=== PATIENT | male | born 1940 | race Caucasian/White ===

== ENCOUNTER 2019-01-27 14:50 | Inpatient (IN) | payer MEDICARE, OTHER ==
[~2019-01-27] VITALS: Ht 182.9 cm; Wt 99.2 kg
[2019-01-27] MEDS ORDERED: COLCRYS0.6 MG PO (15:32)
[2019-01-27] MEDS ORDERED: Felodipine ER5 MG PO (15:32)
[2019-01-27] MEDS ORDERED: Isosorbide Mono60 MG PO (15:32)
[2019-01-27] MEDS ORDERED: FURO40 PO (15:32)
[2019-01-27] MEDS ORDERED: ERGO400 PO (15:33)
[2019-01-27] MEDS ORDERED: CLOP75 PO (15:33)
[2019-01-27] MEDS ORDERED: VENL75ER PO (15:33)
[2019-01-27] MEDS ORDERED: PREVIDENT 500051 GM PO (15:33)
[2019-01-27] MEDS ORDERED: VITAMIN D32000 UNI1 PO (15:34)
[2019-01-27] MEDS ORDERED: Efudex40 GM TP (15:34)
[2019-01-27] MEDS ORDERED: TAMS.4ER PO (15:34)
[2019-01-27] MEDS ORDERED: INSULANPEN SC (15:34)
[2019-01-27] MEDS ORDERED: Bupropion HCl200 MG PO (15:34)
[2019-01-27] MEDS ORDERED: LISI20 PO (15:34)
[2019-01-27] MEDS ORDERED: ATOR80 PO (15:35)
[2019-01-27] MEDS ORDERED: OXYB5 PO (15:35)
[2019-01-27] MEDS ORDERED: ACETAMINOPHEN500 MG PO (15:35)
[2019-01-27] MEDS ORDERED: Inderal40 MG PO (15:35)
[2019-01-27] MEDS ORDERED: Aspirin EC81 MG PO (16:20)
[2019-01-27] MEDS ORDERED: Novolog100 UNIT/2 SC (16:31)
[2019-01-27] MEDS ORDERED: Norco 10-325 T1 EACH PO (16:32)
[2019-01-27] MEDS ORDERED: Nitroglycerin0.4 MG MM (16:34)
[2019-01-27] MEDS ORDERED: K-Dur 20 meq T20 MEQ PO (16:35)
[2019-01-27] MEDS ORDERED: Aqua Care71 GM TOP (16:36)
[2019-01-27] MEDS ORDERED: Flonase 0.05% N16 GM (16:39)
[2019-01-27] MEDS ORDERED: CO-Q 10 PO (16:44)
[2019-01-27] MEDS ORDERED: TRIDESILON60 GM TOP (16:44)
[2019-01-27] MEDS ORDERED: FLAXSEED PO (16:45)
[2019-01-27] MEDS ORDERED: CASCARA SAGRADA PO (16:47)
[2019-01-27] MEDS ORDERED: BIOTENE1000 ML PO (16:48)
[2019-01-27 17:26] LABS: International Normalized Ratio 1.11; Prothrombin Time Results 11.7 Sec (9.7-11.5)
[2019-01-27 18:17] LABS: Hematocrit 37.3 % (37.0-53.0); Hemoglobin 11.5 g/dL (13.5-17.5); Mean Corpuscular HGB 27.3 pg (26.0-34.0); Mean Corpuscular HGB Conc 30.8 g/dL (31.5-36.5); Mean Corpuscular Volume 89 fL (80-100); Mean Platelet Volume 12.3 fL (9.1-12.4); Platelet Count 73 K/mm3 (150-400); RDW Coefficient Variation 15.9 % (11.7-14.2); RDW Standard Deviation 51.5 fL (35.1-46.3); Red Blood Cell Count 4.21 M/mm3 (4.30-5.90); White Blood Cell Count 4.68 K/mm3 (4.00-11.30)
[2019-01-27 18:31] LABS: Anion Gap 6 mmol/L (6-16); Blood Urea Nitrogen 21 mg/dL (8-24); Bun/Creatinine Ratio 19.8 (12.0-20.0); CO2, Blood 28 mmol/L (21-32); Calcium, Blood 8.9 mg/dL (8.5-10.1); Chloride, Blood 105 mmol/L (98-108); Creatinine, Blood 1.06 mg/dL (0.60-1.20); Glomerular Filtration Rate >60 (60-); Glucose, Blood 158 mg/dL (70-99); Potassium, Blood 4.1 mmol/L (3.5-5.5); Sodium, Blood 139 mmol/L (136-145)
--- NOTE | 2019-01-27 18:58 | NUR ---
RECEIVED REPORT FROM ED RN AND PT TRANSFERRED TO UNIT, ASSUMED CARE. PT HAS FEVER UPON ARRIVAL TO UNIT, DR. MARTINEZ IN TO SEE HIM AND DISCUSS POSSIBLE INTERVENTION TOMORROW. ORDERED BLOOD CULTURES X2, ORDER PLACED. TENATIVELY WILL CHANGE TO NPO AT MIDNIGHT FOR ANGIO IN AM. PT IS ON ROOM AIR WITH O2 SAT >92%. WILL GIVE REPORT TO NOC RN.
--- NOTE | 2019-01-28 06:32 | NUR ---
SHIFT [facility]. ASSUMED CARE AT 1900. A LITTLE RESTLESS BUT STARTING TO SHIVER AND CHILL . FEVER NOTED . COOLING MEASURES ESTABLISHED. AND TEMP BEGINS TO REDUCE. FLUIDS TAKEN , DENIES ANY CHEST PAIN. A MILD ROSE ONLY AND AWARE JUST GIVEN TYLENOL SR, SB .BBB. SCATTERED WZ AND REPORTS THIS IS NORMAL FOR HIM/ LANTUS HELD WILL BE NPO,. LT LOWER TOOTH EXTRACTION AREA SEEMS W/ O ANY SWELLING OR UNUSUAL DRAINAGE. VERY WEAK SHAKEY WHEN QUICKLY GETS OUT OF BED TO VOID
--- NOTE | 2019-01-28 10:07 | NUR ---
RECEIVED REPORT AND ASSUMED CARE OF PATIENT. HE IS [place] AT BASELINE, AND SEEMS ANXIOUS BUT COOPERATIVE WITH CARE. DIFFICULTY OBTAINING BLOOD SAMPLE FOR LAB. THIS NURSE NOTIFIED CHARGE AND HE IS ON THE LIST FOR POWERGLIDE PLACEMENT. DR MARTINEZ SCHEDULED ANGIOGRAM FOR THIS EARLY AFTERNOON. HE STATED TO GIVE PT LIGHT BREAKFAST AND THEN NPO FOR PROCEDURE. WILL CONTINUE TO MONITOR.
--- NOTE | 2019-01-28 11:00 | NUR ---
PT TO RADIOLOGIC ELECTRONIC SPECIALIST AT 1055.
--- NOTE | 2019-01-28 13:44 | NUR ---
PT RETURNED TO ROOM AT 1235, ORDERS TO CONTINUE BEDREST FOR 4 HOURS. MONITORING FEMORAL SITE AND DOING RECOVERY VITALS, VSS. PT ON 4LPM O2 VIA NC, 92-95%. FAMILY AT BEDSIDE, WILL CONTINUE TO MONITOR CLOSELY. BED LOCKED AND LOW, CALL LIGHT WITHIN EASY REACH.
--- NOTE | 2019-01-28 14:36 | NUR ---
PATIENT CARE PATIENT'S GAVE PERMISSION FOR STUDENT TO PROVIDE CARE ON 01/29/19 FROM 0630 TO 1200.
--- NOTE | 2019-01-28 17:48 | NUR ---
PT HAD ANGIOGRAM TODAY IN MIXING MACHINE OPERATOR, RECOVERY LABS COMPLETED, FEMORAL ACCESS MONITORED SINCE PT RETURNED TO UNIT AT 1230. SITE HAS SMALL AMOUNT OF OZZING, BUT STABLE AND NO SIGNIFICANT CHANGES IN SITE. NO BRUISING OR HEMATOMA NOTED AT THIS TIME. PT O2 AT 2LPM VIA NC O2 SAT AT 92%. FAMILY AND FRIEND AT BEDSIDE THROUGHOUT THE DAY. WILL CONTINUE TO MONITOR AND GIVE REPORT TO JAYY MAR.
--- NOTE | 2019-01-29 02:50 | NUR ---
ASSUMED CARE AT 1900. ASLEEP AT THIS TIME. WHEN AROUSED TO REVIEW RT GROIN AT 1930. RT GROIN WNL STABLE / NO HEMATOMA. + PEDAL PULSES. WHEN FIRST AWAKE CONFUSED/FORGETFUL DOESNT KNOW IF DAY OR NIGHT, AND IF HE HAD A MEAL .THEN ORIENTED TO ALL OTHER QUESTIONS WHEN MORE AWAKE. SEEMS MISERABLE A FEVER IS DEVELOPING. COOL MEASURES . SOME CHILLS AND NOTED CONSTANT TREMOROUS ARMS AND HANDS. REPORTS THIS IS NORMAL FOR MANY YEARS . SOME GRUNTING AND MOANING AND FOR NO SPECIFIC REASON, OTHER THAN HE DOES HAVE EXERTIONAL SOB W/ ANY SLIGHT EXERTION. SOME AUDIBLE WZ NOTED IN EXERTION AND SCATTERED END EXP WZ NOTED POSTERIORLY AND INSPIR AND EXPIR WZ NOTED ANTERIORLY.. BY 0130 OOB IN ROOM AND A LITTLE MORE STEADY USING WALKER . SNACK GIVEN. STILL NOT KNOWING IF IT IS NOC OR DAY . REORIENTED AND MOST THINGS HE SAYS ARE ACCURATE AND APPROPRIATE. HR NOTED EARLY ON TO BE LOWEST OF 48. HELD PO BETA JANY DUE AT 2100. DENIES ANY PAIN OR DISCOMFORT. WEARS HOME CPAP. AND WHEN ASLEEP HR IS 47-60.NO O2 BLEED IN.
--- NOTE | 2019-01-29 06:25 | NUR ---
SHIFT SUMMARY . NO CHANGE IN ABOVE BUT SLEPT WELL AFTER SAT IN CHAIR FOR 2 HR AND AM IN ROOM W/ WALKER FEW TIMES. AT ABOUT 0100 WOKE UP IN SOAKED BED OF INCONTINENT OF URINE AND SAYS THIS HAPPENS AT HOME OCCASIONALLY AND NOT SURE WHY. DRY AT THIS TIME AND KEPT CPAP ON OVER LAST 3 HR AND SLEPT VERY WELL. AFEBRILE LAST VS. BUT EXTRA COVERS ON.RT GROIN SITE WNL. NO CHANGE. HR STILL 48 COMMON WHEN ASLEEP . SB
[2019-01-29 14:48] LABS: BASOPHILS ABSOLUTE AUTO 0.01 K/mm3 (0.00-0.23); BASOPHILS PERCENT AUTO 0 % (0-2); EOSINOPHILS PERCENT AUTO 0 % (0-6); Hematocrit 31.3 % (37.0-53.0); Hemoglobin 9.8 g/dL (13.5-17.5); IMMATURE GRAN ABSOLUTE AUTO 0.02 K/mm3 (0.00-0.10); IMMATURE GRAN PERCENT AUTO 1 % (0-1); LYMPHOCYTES ABSOLUTE AUTO 0.64 K/mm3 (0.84-5.20); LYMPHOCYTES PERCENT AUTO 15 % (21-46); MONOCYTES ABSOLUTE AUTO 0.36 K/mm3 (0.16-1.47); MONOCYTES PERCENT AUTO 8 % (4-13); Mean Corpuscular HGB Conc 31.3 g/dL (31.5-36.5); Mean Platelet Volume 11.1 fL (9.1-12.4); NEUTROPHILS ABSOLUTE AUTO 3.31 K/mm3 (1.96-9.15); NEUTROPHILS PERCENT AUTO 76 % (41-73); Platelet Count 69 K/mm3 (150-400); RDW Standard Deviation 50.4 fL (35.1-46.3); Red Blood Cell Count 3.63 M/mm3 (4.30-5.90); White Blood Cell Count 4.34 K/mm3 (4.00-11.30)
[2019-01-29 14:52] LABS: Mean Corpuscular Volume 86 fL (80-100)
[2019-01-29 14:58] LABS: Bun/Creatinine Ratio 23.2 (12.0-20.0); Calcium, Blood 8.3 mg/dL (8.5-10.1); Creatinine, Blood 1.55 mg/dL (0.60-1.20); Potassium, Blood 3.9 mmol/L (3.5-5.5)
--- NOTE | 2019-01-29 16:32 | NUR ---
PT SYNCOPAL EVENT: AKANKSHA SALMON AND AKANKSHA CAN REPORTED THAT PATIENT WAS OUT OF CHAIR AND HAD CORDS STRETCHED OUT, HE WAS WEAK AND APPEARED CONFUSED. CUSTODIAN BLOOD BANK'S HELPED PT BACK TO CHAIR AND TOOK BLOOD PRESSURE, 78/49. PT ASSISTED BACK TO BED, TOOK ANOTHER BP SYSTOLIC IN THE 115 RANGE. AFTER RESTING AND VISITING WITH DR. MARTINEZ WHO DROPPED IN TO SEE PATIENT BP RESOLVED TO 130'S SYSTOLICALLY. DR. MARTINEZ STATED PT NEEDS TO ONLY GET UP WITH ASSISTANCE AND NEEDS TO STAY ON BEDREST UNTIL DINNER TO RECOVER. WILL CONTINUE TO MONITOR AND TREAT PER ORDERS.
--- NOTE | 2019-01-29 19:50 | NUR ---
PT HAD A GOOD DAY, DR SERRANO TO BEDSIDE AT 1850 TO REPORT THAT HE HAS PUT ORDER IN FOR LEVOQUIN TO TREAT LEFT SIDED PNU. PT EXPRESSED SOME FRUSTRATION, BUT WAS HAPPY TO KNOW WHY HE IS FEELING SO POORLY. REPORTED SYNCOPAL EVENT TO DR. SERRANO, NO NEW ORDERS RECEIVED, POC TO GIVE ABX AND MONITOR PATIENT. HOSPITALIST TO SEE PATIENT TOMORROW. REPORTED TO NOC ISABELA LUNA.
[2019-01-30 05:07] LABS: Bun/Creatinine Ratio 23.3 (12.0-20.0); Calcium, Blood 7.7 mg/dL (8.5-10.1); Creatinine, Blood 2.1 mg/dL (0.60-1.20); Potassium, Blood 4.3 mmol/L (3.5-5.5)
--- NOTE | 2019-01-30 06:03 | NUR ---
SUMMARY: PT ADMITTED FOR NSTEMI. PT STABLE TONIGHT, NO COMPLIANTS OF CHEST PAIN, SOB. PT WORE CPAP TONIGHT. TYLENOL GIVEN X2, HIGHEST FEVER 101.3, OTHERWISE VSS, A/O. ANTIBIOTIC INFUSED. TELE SINUS SARAN 40-50S. NO ACUTE CONFUSION, BED ALARM ON FOR SAFETY. PT REPORTS INCREASED TREMOR, WHICH IS PT BASELINE. WILL REPORT TO DAY RN.
--- NOTE | 2019-01-30 14:33 | NUR ---
BEGINNING OF SHIFT Assumed care of pt at 0700. Report recieved from ISABELA Thompson. Pt on 2 LPM NC. Titrated to room air, with Dr Beltran at bedside. Pt tolerated titration to room air well. Plans for pt to discharge. Physical therapy worked with pt and recommended that pt stays one more night due to BLE weakness. Physical therapy worked with pt while pt's spouse in room. Spouse verbalized concern that pt may require more care than she can provide. Call placed to Dr Beltran. Provider agreed to keep pt for one more night. Pt and his spouse agreeable to this change in plan of care. Pt has not had any chest pain. Pt is significantly tremulous. Pt's spouse states pt has "benign tremor", but it is more severe right now compared to his baseline. Bed in lowest position. Call light in reach. Pt denies need at this time.
--- NOTE | 2019-01-30 16:57 | NUR ---
Brief visit with Chief this afternoon at the request of nursing. Pt has been resistant to going to an inpatient rehab facility per report. Chart reviewed. PT has worked with pt and . Pt is weak and would be at high risk for readmission if he is to go home with HH and his as primary caregiver. This afternoon PT worked with him again and recommends SNF. Pt is agreeable to go to SNF, but not to [facility]. He states "People go to [facility] to , and I won't go." LM with Iliana ROSALES, that pt prefers [facility] for rehab. Pt with non-stemi, pneumonia, essential tremors. He is a [facility]. Pt denies any current needs and has no questions at this time.
--- NOTE | 2019-01-30 18:44 | NUR ---
SHIFT SUMMARY No acute changes since last note. Pt is resting in chair at this time. Family states understading that pt will likely discharge to SNF. Pt on 2 LPM NC, placed while working with PT. Will continue to closely monitor until care handoff and bedside report with oncoming RN.
--- NOTE | 2019-01-31 04:31 | NUR ---
SHIFT SUMMARY THE PT ADMITTED FOR NSTEMI. FULL CODE. ADA DIET. TELE-SINUS SARAN AT A RATE OF 49 PER BASIN TENDER. CBG AT AC AND HS. 20G IV TO R AC. 2 PERSON ASSIST WITH TRANSFERS. 2L O2 VIA NC, NONE AT BASELINE. TAKES MEDICATIONS WHOLE. REDISH BROWN SPUTUM REPORTED BUT NONE OBSERVED SO FAR THIS SHIFT. EDUCATED PT REGARDING USE OF FLUTTER VALVE AND ASSISTED PT WITH FIRST USE. HOWEVER, PT IS VERY FORGETFUL AND IT IS UNCLEAR IF PT WILL REMEMBER TO USE SO FREQUENT REMINDERS MAY BE BENEFICIAL. PT HAS SIGNIFICANT TREMORS NOTED THROUGHOUT. SOME TREMOR AT BASELINE PER PT AND REPORT BUT CURRENTLY MORE DEBILITATING. PHYSICAL THERAPY IS RECOMMENDING SNF PLACEMENT DUE TO THE PT BEING TOO WEAK TO GO HOME SINCE THE CANNOT TAKE CARE OF THE PT IN CURRENT STATE. THE PT WAS GOPING TO [facility] YESTERDAY BUT PHYSICAL THERAPY ASKED TO HOLD DUE TO WEAKNESS AND SAFETY. THE PT PRESENTED TO THE ED WITH C/O CHEST PRESSURE AND NOT FEELING WELL FOR 2 WEEKS. THE PT WAS ADMITTED FOR NSTEMI AND IS ALSO NOTED TO HAVE LEFT LOWER LOBE PNEUMONIA. THE PT IS VERY ANXIOUS TO DISCHARGE AND IS NOT LIKEING THE IDEA OF GOING TO A SNF. THE PT WAS NOTED TO HAVE A 100.9 TEMP AT FIRST SET OF VITALS, REMOVED SEVERAL BLANKETS FROM PT AND MEDICATED PER EMAR. NO TEMP NOTED AT LAST SET OF VS. THE PT HAS APPEARED TO SLEEP COMFORTABLY OFF AND ON THROUGHOUT THE NIGHT BUT APPEARS TO BE AWAKENED BY TREMORS FREQURNTLY. THE PT APPEARS TO BE SLEEPING COMFORTABLY AT THIS TIME WITH NO APPARENT SIGNS OF ACUTE DISTRESS. FREQUENT VISUAL CHECKS IT IS NOT CLEAR IF PT IS ABLE TO MAKE NEEDS KNOWN. BED ALARM FOR SAFETY.
--- NOTE | 2019-01-31 07:23 | NUR ---
UPDATE THE PT WAS A 3 PERSON MAX ASSIST TO GET ON TO BSC THIS AM. THE PT WAS INCONTINENT OF BOWEL AND NEEDED TO FINISH ON BSC. PT WAS WAVING ARMS AND LEGS UNCONTROLLABLY WHILE ATTEMPTING TO GET PT ONTO THE COMMODE. PT WAS NOT FOLLOWING COMMANDS AND UNABLE TO REDIRECT INITIALLY. PT DOES NOT APPEAR TO BE WEAK BUT SIGNIFICANTLY UNCONTROLLED MOVEMENTS WITH TREMORS, AND VERY POOR BALANCE.
[2019-01-31 09:22] LABS: BASOPHILS PERCENT AUTO 0 % (0-2); EOSINOPHILS PERCENT AUTO 0 % (0-6); Hematocrit 32.4 % (37.0-53.0); Hemoglobin 10.2 g/dL (13.5-17.5); IMMATURE GRAN ABSOLUTE AUTO 0.03 K/mm3 (0.00-0.10); IMMATURE GRAN PERCENT AUTO 1 % (0-1); LYMPHOCYTES ABSOLUTE AUTO 0.75 K/mm3 (0.84-5.20); LYMPHOCYTES PERCENT AUTO 14 % (21-46); MONOCYTES ABSOLUTE AUTO 0.23 K/mm3 (0.16-1.47); MONOCYTES PERCENT AUTO 4 % (4-13); Mean Corpuscular HGB 27.3 pg (26.0-34.0); Mean Corpuscular HGB Conc 31.5 g/dL (31.5-36.5); Mean Corpuscular Volume 87 fL (80-100); Mean Platelet Volume 12.4 fL (9.1-12.4); NEUTROPHILS ABSOLUTE AUTO 4.43 K/mm3 (1.96-9.15); NEUTROPHILS PERCENT AUTO 81 % (41-73); Platelet Count 70 K/mm3 (150-400); RDW Standard Deviation 50.9 fL (35.1-46.3); Red Blood Cell Count 3.73 M/mm3 (4.30-5.90); White Blood Cell Count 5.44 K/mm3 (4.00-11.30)
[2019-01-31 09:37] LABS: Calcium, Blood 7.8 mg/dL (8.5-10.1); Creatinine, Blood 2.22 mg/dL (0.60-1.20); Potassium, Blood 4.2 mmol/L (3.5-5.5)
--- NOTE | 2019-01-31 11:17 | NUR ---
BEGINNING OF SHIFT Assumed care of pt at 0700. Report recieved from Ebony MAR. Pt on 5 LPM NC. Titrated down to 2 LPM NC. Pt tolerating O2 titration well. Shift assessment completed. Dr Beltran in to see pt this AM. Plans for discharge to SNF. Bed in lowest position. Call light in reach. Pt denies need at this time.
--- NOTE | 2019-01-31 12:20 | NUR ---
Clinical Visit: Pt is alert, oriented to self and situation. Reports that he is goingto a intermediate. Pt's , Rodney, is in the room; along with a close friend. She states that before this, pt was driving and taking care of himself. They had no need for caregivers, and this will be a total change of lifestyle for them. Rodney realizes that he may never be the same from now on. Pt gets momentarily agitated because he wants to return to his bed. He has been clising his eyes frequently during our conversation and does so in the middle of talking. Dusky appearance, denies pain and anxiety. Spoke to pt's nurse. She states that he transfers with one person assist, using gait belt and walker. Speak in low tones, pt follows directions well. Pt is treansfered using the above technique, pt did well and was placed in bed. Nurse assisted with scooting him up in bed. Pillow placed, knees elevated. Pt appears comfortable. is remaining at bedside until her daugher arrives, then she is going to lunch. She is asking when pt will discharge to facility. Answered that I will inquire about this to care management and get back to her. Card and information given. Pt does have a POLST, Rodney states. She offers to sign another POLST if needed. She confirms FULL code status and states that this is what is filled out on the POLST. Rodney states that pt does not look well, and for the last 3 days has been looking very poorly to her. Will follow up with care managment and get back to Rodney regarding her inquiry into when pt will be discharged from the hospital. Fax to [place] to request POLST form and/or advance directive. is trans
--- NOTE | 2019-01-31 18:34 | NUR ---
SHIFT SUMMARY Pt did not discharge to SNF today due to febrile temperatures during previous NOC shift. Pt started sinemet today for tremors. This RN does not see any improvement in the pt's tremor. Pt has had several visitors throughout the day. Pt to transfer to room 301. Faustino VALE to take pt to room 301 via bed. Report given to [facility], Pennie MAR.
--- NOTE | 2019-01-31 19:04 | NUR ---
TRANSFER Pt transferred to room 301 via bed, accompanied by Faustino VALE and Laura MAR. Chart, medications, and belongings transferred with patient.
--- NOTE | 2019-02-01 03:54 | NUR ---
PT WAS FOUND TRYING TO GET OF BED BY AID. PT HAD TOOK OFF CPAP AND HAD BLUEN LIPS. PT SPO2 WAS READING 40%. PT WAS FOUND BY THIS RN CONFUSED. O2 WAS PLACED ON PT AND SPO2 INCREASED. PT REMAINED CONFUSED. PT IS VERY UNSTEADY ON HIS FEET. PT WAS PLACED BACK INTO BED AND CPAP WITH O2 WAS PLACED. PT WENT TO SLEEP.
--- NOTE | 2019-02-01 05:17 | NUR ---
SHIFT SUMMARY PT ARRIVED TO FLOOR IN NO DISTRESS. PT FOUND TO BE UNSTEADY AND HAS A MARKED TREMOR NOTED. PT HAD NO COMPLAINTS. PT WENT TO BED AND HIS CPAP WAS PLACED. PT WAS FOUND TRYING TO GET OUT OF BED AND WAS CONFUSED. PT REDIRECTED TO BED. PT WAS ABLE TO SLEEP AGAIN WITH CPAP. PT IS CURRENTLY SLEEPING AND BREATHING EASY WITH CPAP. PT CONTINUES TO HAVE TREMORS NOTED IN HIS SLEEP. WILL REASSESS LEVEL OF CONFUSION WHEN PT WAKES.
[2019-02-01 09:33] LABS: BASOPHILS PERCENT AUTO 0 % (0-2); EOSINOPHILS PERCENT AUTO 0 % (0-6); Hemoglobin 8.7 g/dL (13.5-17.5); Mean Corpuscular HGB Conc 32.2 g/dL (31.5-36.5); Mean Platelet Volume 12.2 fL (9.1-12.4); Platelet Count 74 K/mm3 (150-400); RDW Coefficient Variation 16.5 % (11.7-14.2); RDW Standard Deviation 50.5 fL (35.1-46.3); Red Blood Cell Count 3.22 M/mm3 (4.30-5.90); White Blood Cell Count 4.28 K/mm3 (4.00-11.30)
[2019-02-01 09:36] LABS: IMMATURE GRAN ABSOLUTE AUTO 0.03 K/mm3 (0.00-0.10); IMMATURE GRAN PERCENT AUTO 1 % (0-1); LYMPHOCYTES ABSOLUTE AUTO 0.41 K/mm3 (0.84-5.20); LYMPHOCYTES PERCENT AUTO 10 % (21-46); MONOCYTES ABSOLUTE AUTO 0.14 K/mm3 (0.16-1.47); MONOCYTES PERCENT AUTO 3 % (4-13); Mean Corpuscular Volume 84 fL (80-100); NEUTROPHILS PERCENT AUTO 86 % (41-73)
[2019-02-01 09:53] LABS: Bun/Creatinine Ratio 33.1 (12.0-20.0); Calcium, Blood 7.1 mg/dL (8.5-10.1); Creatinine, Blood 2.51 mg/dL (0.60-1.20); Potassium, Blood 3.6 mmol/L (3.5-5.5)
--- NOTE | 2019-02-01 11:06 | NUR ---
THIS RN CAME TO FLOOR FOR SHIFT. DISCUSSED WITH NIGHT RN REASON FOR DIRECTOR OF GRADUATE ADMISSIONS. THIS RN CALLED DR. LUNSFORD, NEW ORDERS PLACED. DR. LUNSFORD REPORTED TO THE FLOOR TO ASSESS PATIENT WITH THIS RN. STATED THAT HE WANTED PATIENT TRANSFERED DUE TO THE INCREASE IN OXYGEN DEMANDS, DECREASING BLOOD PRESSURE AND INCREASED TEMP. ADMINSTERED OH TYLENOL, STARTED IV FLUIDS PER ORDER, STARTED 2 NEW IV'S FOR FLUIDS AND ANTIBIOTICS. PATIENT ON CPAP REQURING 8L BLED IN TO KEEP SATURATIONS BETWEEN 88-92%. REPORT GIVEN TO SABRINA DURAN IN PCU. PATIENT TRANSFERED.
[2019-02-01 15:11] LABS: Source, Urine Catheter
[2019-02-01 15:16] LABS: Bilirubin, Urine Neg (Neg); Blood, Urine 1+ (Neg); Glucose Qualitative, Urine Neg (Neg); Ketones, Urine Neg (Neg); Leukocyte Esterase, Urine Neg (Neg); Nitrite, Urine Neg (Neg); Protein, Urine 2+ (Neg); Specific Gravity, Urine 1.025 (1.003-1.022); Urobilinogen, Urine NORM (Normal)
[2019-02-01 15:22] LABS: Appearance, Urine Clear (Clear); Color, Urine Yellow (P-Yellow)
[2019-02-01 15:24] LABS: Bacteria Few /hpf; Red Blood Cells, Urine 0-2 /hpf (0-2); Squamous Epithelial Cells Not Seen /hpf (Few); White Blood Cells, Urine 0-2 /hpf (0-5)
[2019-02-01 16:01] LABS: BASOPHILS PERCENT AUTO 0 % (0-2); EOSINOPHILS PERCENT AUTO 0 % (0-6); Hematocrit 28.1 % (37.0-53.0); IMMATURE GRAN ABSOLUTE AUTO 0.04 K/mm3 (0.00-0.10); IMMATURE GRAN PERCENT AUTO 1 % (0-1); LYMPHOCYTES ABSOLUTE AUTO 0.43 K/mm3 (0.84-5.20); LYMPHOCYTES PERCENT AUTO 9 % (21-46); MONOCYTES ABSOLUTE AUTO 0.13 K/mm3 (0.16-1.47); MONOCYTES PERCENT AUTO 3 % (4-13); Mean Corpuscular HGB 27.5 pg (26.0-34.0); Mean Corpuscular Volume 86 fL (80-100); Mean Platelet Volume 11.6 fL (9.1-12.4); NEUTROPHILS ABSOLUTE AUTO 4.02 K/mm3 (1.96-9.15); NEUTROPHILS PERCENT AUTO 87 % (41-73); Platelet Count 75 K/mm3 (150-400); RDW Coefficient Variation 16.5 % (11.7-14.2); RDW Standard Deviation 51.6 fL (35.1-46.3); Red Blood Cell Count 3.27 M/mm3 (4.30-5.90); White Blood Cell Count 4.62 K/mm3 (4.00-11.30)
[2019-02-01 16:26] LABS: Percent Saturation 10.4 % (20.0-50.0)
[2019-02-01 16:27] LABS: Albumin, Blood 2.6 g/dL (3.4-5.0); Anion Gap 9 mmol/L (6-16); Blood Urea Nitrogen 85 mg/dL (8-24); Bun/Creatinine Ratio 36.8 (12.0-20.0); CO2, Blood 25 mmol/L (21-32); Calcium, Blood 7.1 mg/dL (8.5-10.1); Chloride, Blood 102 mmol/L (98-108); Creatinine, Blood 2.31 mg/dL (0.60-1.20); Glomerular Filtration Rate 29 (60-); Glucose, Blood 80 mg/dL (70-99); Phosphorus, Blood 4.4 mg/dL (2.5-4.9); Potassium, Blood 3.8 mmol/L (3.5-5.5); Sodium, Blood 136 mmol/L (136-145); Uric Acid, Blood 10.1 mg/dL (3.5-7.2)
[2019-02-01 17:11] LABS: CPK Creatine Kinase 2292 U/L (39-308)
--- NOTE | 2019-02-01 18:36 | NUR ---
SHIFT SUMMARY Assumed care of pt upon arrival to unit from medical floor at 0845. Pt arrived wearing 8 LPM oxymizer. O2 sats greater than 90%. Upon arrival to unit, pt was awake and persistently asking for water. This RN educated pt on reason for being NPO. This RN educated visitors that pt was not to have anything by mouth. Morning lantus given to pt as ordered, depsite NPO status, as pt has had minimal PO intake on Monday and , as witnessed by this RN, and pt's blood sugars were stable. Around noon, pt's O2 requirements increased to 15 LPM via CPAP. Blood sugars were low-normal. This RN notified Dr Beltran, while on unit. Disucssed Lantus and pt's blood sugar trend as well as increased O2 requirements. Provider in to see pt shortly afterwards. Pt tolerates breaks from CPAP well. 15 LPM via oxymizer when not on CPAP. Oral care perfomed Q4H and PRN with suction toothbrush. Repositioned Q2H. Pt remains severely tremulous. Pt has not been OOB. Transferred from medical floor to PCU via bed with slider sheet. Pt has worn CPAP for about 60% of time since arrival to unit. When pt on on CPAP, this RN works with pt to use flutter valve. Flutter valve effective in producing strong, harsh cough in pt, however pt is not producing any sputum. Pt continent of urine. Notifies staff in room when he needs the urinal. Bed in lowest position. Call light in reach. Pt denies need at this time. Will continue to closely monitor until care handoff and bedside report with oncoming RN.
--- NOTE | 2019-02-02 00:48 | NUR ---
ASSUMED CARE AT 2200, PATIENT RESTING, PLACED ON BIPAP AT 0015.
--- NOTE | 2019-02-02 00:49 | NUR ---
ASSUMED CARE AROUND 2200. PATIENT WITH OUT C\O. ASSISTED TO BEDSIDE COMMODE AND BACK TO BED. CALL LIGHT IN REACH WILL MONITOR.
[2019-02-02 05:57] LABS: Vancomycin, Random 7.3 ug/mL
[2019-02-02 06:40] LABS: Bun/Creatinine Ratio 37.4 (12.0-20.0); Calcium, Blood 7.3 mg/dL (8.5-10.1); Creatinine, Blood 2.06 mg/dL (0.60-1.20); Potassium, Blood 3.8 mmol/L (3.5-5.5)
--- NOTE | 2019-02-02 07:00 | NUR ---
recvd report from previous shift RN Rowdy, pt sleeping in bed, call light within reach, bed in lowest position, bed rails up x 2
--- NOTE | 2019-02-02 08:35 | NUR ---
SPEECH THERAPY TO EVALUATE PT 0900- DR LUNSFORD TO ROUND ON PT
--- NOTE | 2019-02-02 18:36 | NUR ---
shift summary: vss, no acute changes, 1800 sbp 102/50, held calcium channel candido. pt remained a/o x 3, no n/v, urine output >500 ml using urinal and up to commode, on very large BM. pt forgetful of using call light, called out. pt remained pleasant/cooperative. PT treated pt, up to chair for lunch. Pt remained in chair for 2 hrs. Visitors in room for 6 hrs total this shift. pt remained up and alert, speaking with friends/family, but when visitors left pt appeared to be very tired, got back in bed and slept from approx [id number], difficult to wake. lungs remained coarse with expiratory wheezes, 9L oxymizer with SPO2 >90%, at times high 90s. repositioned pt q2. pt with 1 moderate assist to commode/chair, fww and gait belt, states he feels "weak and tired". encouraged pt to rest as much as he can
--- NOTE | 2019-02-02 23:36 | NUR ---
ASSUMED CARE AT 1900. FAMILY AT BED SIDE. AWARE OF FAMILY AND SURROUNDINGS. MOST FACTS APPROPRIATE AND THEN NOTED TO BE FORGETFUL. CONSTANT FALLING OFF TO SLEEP AND NOTED AUDIBLE WZ AND AUSCULTATED WZ T/O BILAT. STRONG COUGH AND NON PRODUCTIVE. TOO SLEEPY AND NO HS SNACK OFFERED. AWARE MORPHINE HE HAD LAST NOC HELPED HIM TO BUT I REMINDED HIM HE IS CONSTANTLY FALLING OFF TO SLEEP/ AND NO SPECIFIC PAIN JUST DESIRES TO SLEEP/ MEPILEX ON COCCYX AND EVAL IS DOCUMENTED.REPOSITIONED AND ASSISTS A LITTLE. VERY TREMOROUS W/ ALL USAGE OF HANDS. PUDDING W/ PILLS AND HIGH FOWLERS.
--- NOTE | 2019-02-03 06:42 | NUR ---
SHIFT SUMMARY NO ACUTE CHANGES TO PT DURING THE NIGHT. HE HAS BEEN ALERT AND ORIENTED X 3 THROUGHOUT SHIFT. PAIN IN LEFT LOWER QUADRANT WHILE COUGHING. PT CONTINUE TO BE MONITORED UNTIL HANDOFF TO DAYSHIFT RN.
[2019-02-03 08:44] LABS: Bun/Creatinine Ratio 30.3 (12.0-20.0); Calcium, Blood 7.1 mg/dL (8.5-10.1); Creatinine, Blood 2.87 mg/dL (0.60-1.20); Potassium, Blood 3.9 mmol/L (3.5-5.5)
--- NOTE | 2019-02-03 21:59 | NUR ---
ASSUMED CARE AT 1900. SITTING UP IN CHAIR TALKING W/ FAMILY ABOUT WAR ISSUES. SEEMS ORIENTED CONVERSATION. A LITTLE FORGETFUL . FREQ PANTING BREATHS IF STRUGGLING TO BREATHE BUT SAT WNL AND GOOD WAVE FORM AND LEFT ON 3-4 L NC. FOR SAT OF 88-92. NO ACUTE RESP ISSUES . ENCOUR TO USE EFFECTIVE BREATHING. AND TRIES TO ACCOMODATE. AND FOLLOW INSTRUCTIONS . NO SWALLOWING ISSUES AND SNACK ENC BUT REFUSED NOW. AT 2114. NOTED PT FOUND BACK IN BED AND TRYING TO ADJUST SELF AND THEN BECAME VERY TACHEPNEC ALTHOUGH SATS OK AND SAME 4L . RECOVERED FAIRLY QUICKLY AND THEN STARTS MAONING AND GRUNTING ABOUT THE NEED TO HAVE MORPHINE FOR SLEEP . EXPLAINED ISSUES AND POSSIBLE MENTATION IMPAIRMENT AND LETHARGY LAST NIGHT AND ACCEPTS RESPONSE FOR A WHILE THEN THE MOANING AGAIN. PLACED ON CPAP AND WILL REPORT OFF TO MARIA GUADALUPE MAR
--- NOTE | 2019-02-03 22:30 | NUR ---
ASSUMED CARE PT CARE ASSUMED AT APPROXIMATELY 2230. PT ANSWERS ORIENTATION QUESTIONS APPROPRIATELY , BUT ANXIOUS AND TREMULOUS. PT IS PULLING AT CPAP MAST AND REMOVING NASAL CANNULA WHEN IT IS IN HIS NOSE. WHEN ASKED HOW HE HANDLES ANXIETY AT HOME, PT STATES THAT HE DOESN'T HAVE THIS MUCH STIMULATION AND ANXIETY AT HOME, BUT HE TAKES BENADRYL TO RELAX AND SLEEP. WILL CONTACT PROVIDER AND ASK FOR MEDICATION ORDERS. MASK PLACED BACK ON PATIENT AND ADJUSTED IN BED FOR COMFORT. PT APPEARS TO BE MORE RELAXED AFTER THIS, BUT IS STILL FIDGETY. O2 SATS BRIEFLY DECREASED TO LOW 80'S WHEN NASAL CANNULA REMOVED, BUT INCREASED TO >90% WHEN REPLACED. PT REQUIRES REMINDERS TO BREATH THROUGH HIS NOSE WHEN CPAP IS OFF. WILL CONTINUE TO MONITOR.
--- NOTE | 2019-02-04 05:00 | NUR ---
ABG ORDERS PT COTINUES TO ANSWER ORIENTATION QUESTIONS APPROPRIATELY, BUT IS REPORTING SEEING THINGS THAT AREN'T THERE AND SITUATIONS THAT HAVE NOT OCCURED. PT ALSO CONTINUES TO MOVE HANDS THROUGH THE AIR IF HE IS ATTEMPTING TO TOUCH SOMETHING THAT ISN'T THERE WELL CONTINUES TO PULL AT IV LINES AND CPAP MASK. RT CONTACTED AND ASKED TO ASSESS PATIENT AND POTENTIAL NEED FOR ABG- VERBAL ORDER RECEIVED FROM DR THOMAS TO RTYAMILA. LAB DRAWN, AWAITING RESULTS.
[2019-02-04 05:21] LABS: PCO2 Arterial 31.6 mmHg (35-45); PO2 Arterial 49.2 mmHg (80-100); pH Blood Arterial 7.44 (7.35-7.45)
--- NOTE | 2019-02-04 05:58 | NUR ---
SHIFT SUMMARY- PT HAS REMAINED AT CURRENT MENTATION THROUGHOUT THE NIGHT, ORIENTED TO SELF, PLACE, DATE/TIME, PRESIDENT, AND TOWN, BUT UNABLE TO STATE WHY HE IS HERE. O2 SATS HAVE REMAINED >90% ON 6L BLEED IN ON HOME CPAP MACHINE, CURRENTLY 95% READING ON CONTINUOUS BIOX, ALL OTHER VSS. PT HAS REMAINED ON BEDREST AND TURNED SELF IN BED FROM SIDE TO SIDE. PT HAS SLEPT MINIMALLY THROUGHOUT THE NIGHT, AND HAS BEEN AWAKE AND RESTLESS THROUGHOUT MUCH OF THE SHIFT. NO OTHER CHANGES NOTED FROM INITIAL ASSESSMENT. WILL CONTINUE TO MONITOR AND REPORT TO ONCOMING SHIFT RN. BED IN LOW POSITION, CALL LIGHT IN REACH.BED ALARM SET FOR SAFETY.
[2019-02-04 08:34] LABS: Vancomycin, Trough 19.9 ug/mL (5.0-10.0)
[2019-02-04 08:47] LABS: Bun/Creatinine Ratio 26.8 (12.0-20.0); Calcium, Blood 7.2 mg/dL (8.5-10.1); Creatinine, Blood 3.66 mg/dL (0.60-1.20); Phosphorus, Blood 4.1 mg/dL (2.5-4.9)
--- NOTE | 2019-02-04 13:06 | NUR ---
Met with 's in [facility] per her request this morning. She is tearful and states "If he knew what was going on, he wouldn't like it." She is considering changing him to comfort care status. She states, "I want to keep him comfortable because he continues to get worse." There is an echo which nursing reports was done this morning but no report on chart at this time. Will plan to meet with 's after the echo results are back. She is open to the idea of hospice, but is unsure if she would be able to manage him at home. is a and she stated she [facility] if she decides to transition him to comfort care. Emotional support given. PC will plan to follow up after echo report is complete.
--- NOTE | 2019-02-04 19:47 | NUR ---
PT RESTLESS T/O DAY. REC'D IN REPORT FROM NOC SHIFT THAT PT HAS NOT BEEN SLEEPING AT [facility]. CONCERNS IF INCREASED CONFUSION R/T NOT SLEEPING. PT WILL CLOSE EYES BUT PICKS AT TELE, BLANKETS/SHEETS, O2 TUBING. HAS BEEN IMPULSIVE, ATTEMPTING TO GET UP OUT OF CHAIR OR BED. NOT USING CALL LIGHT APPROPRIATELY. NO VOID TODAY, BLADDER SCANS BETWEEN 0 TO [address] THIS AFTERNOON. DR. LUNSFORD AWARE, AWAITING DR PALOMO TO ROUND. IV FLUIDS INFUSING. PT HAS ONLY TAKEN BITES OF APPLESAUCE, SIPS OF H2O/BROTH AT MEAL TIMES.PT STATES BEING "FULL" ECHO DONE, REPORT STATES EF AT 55%. NOTIFIED OF RESULTS. PT HAS HAD PERIODS OF AGITATION AND DIFFICULT TO REDIRECT, AND/OR PERIODS OF HALLUCINATIONS AND HAVING CONVERSATIONS WITH SELF. PALLIATIVE CARE ALSO IN TO SEE AND PT, WISHED TO HAVE CODE STATUS CHANGED TO DNR, PT NOW DNR. REPORT GIVEN TO ISABELA BALDWIN
--- NOTE | 2019-02-04 20:16 | NUR ---
ASSUMED CARE AT 193P0..VERY CONFUSESD , ONLY KNOWS NAME AND DATE. REORIENTED CONSTANTLY. PERIODS OF CALM COMFORTAABLE BREATHING TO COMPLETE PANIC RIPPING OFF CPAP WHICH WAS ACCEPTED AND COMFORTABLE FOR ABOUT 15 MIN. HELPS TURN W/ STAFF IF NOT IN ESCALATING PANIC STATE. EXCELLENT LOOSE STRONG COUGH. DENIES PAIN . NON STOP TREMORS IF TRYING TO USE ARMS OR HANDS. VERY EXHAUSTED LOOKING. 88% NOTED WHEN CALMING AND NOW BACK ON NC AT 6L. CPAP WAS WNL SAT FOR BLEED IN OF 6 L ALSO. SOME MOANING AND GRUNTING FOR COMFORT BUT NO ACUTE RESP DISTRESS.
--- NOTE | 2019-02-04 22:22 | NUR ---
COMPLETELY CONFUSED AND HALLUCINATING. COOPERATIVE IN NOT TRYING TO GET OUT OF BED. BED ALARM ON AT ALL TIMES. CPAP ATTEMPT AND ON AND OFF AT SHORT INTERVALS. STILL ALWAYS WNL SAT ON 6L. PULLING AT TUBING AND GENTLY AND REDIRECTED CONSTANTLY. NO EFFORT IN REMAINING ORIENTED
--- NOTE | 2019-02-05 00:02 | NUR ---
UNABLE TO VOID SEEM TO HAVE URGE BUT SO CONFUSED , NOT SURE IF HE UNDERTANDS WHAT STAFF IS TRYING TO ASSIST W/ WHEN HOLDING URINAL CONSTANTLY. BLADDER SCAN W/ RESULTS OF >395ML. CALLING MD FOR STRAIGHT CATH ORDERS.
[2019-02-05 01:06] LABS: Source, Urine Catheter
[2019-02-05 01:07] LABS: Bilirubin, Urine Neg (Neg); Blood, Urine 3+ (Neg); Glucose Qualitative, Urine Neg (Neg); Ketones, Urine Neg (Neg); Leukocyte Esterase, Urine Neg (Neg); Nitrite, Urine Neg (Neg); Protein, Urine 2+ (Neg); Specific Gravity, Urine 1.025 (1.003-1.022); Urobilinogen, Urine NORM (Normal)
[2019-02-05 01:15] LABS: Appearance, Urine Hazy (Clear); Color, Urine Yellow (P-Yellow); Red Blood Cells, Urine 0-2 /hpf (0-2); White Blood Cells, Urine 0-2 /hpf (0-5)
[2019-02-05 01:16] LABS: Amorphous Light (0-Heavy); Bacteria Mod /hpf; Squamous Epithelial Cells Not Seen /hpf (Few)
--- NOTE | 2019-02-05 02:25 | NUR ---
MOSTLY COMBATIVE AND ESCALATES W/ ANGER FOR STRAIGHT CATH AND IV START/TALKED THROUGH AND CALMED.STRAIGHT CATH INSERT WAS 500 ML AND FAIRLY GOOD AMT URINE SQUIRTING THROUGH MEATUS CATH INSERTED.,UA SENT.WEARING CPAP MOSTLY AT 8L BLEED IN , NOW.
--- NOTE | 2019-02-05 03:34 | NUR ---
LAST 1.5 HRS NON STOP FIGET/TREMORS/WRESTLING W/ BEDDING/STIFFENING UP/ BUT KEEPS CPAP ON AND TALKING THROUGH CPAP ..HALLUCINATIONS AND TALKING TO SELF. PULLING TELE LEADS OFF CONSTANTLY.
[2019-02-05 04:53] LABS: Hematocrit 26.7 % (37.0-53.0); Hemoglobin 8.3 g/dL (13.5-17.5); Mean Corpuscular HGB 26.8 pg (26.0-34.0); Mean Corpuscular HGB Conc 31.1 g/dL (31.5-36.5); Mean Corpuscular Volume 86 fL (80-100); Mean Platelet Volume 11.5 fL (9.1-12.4); NRBC ABSOLUTE 0.03 K/mm3 (0.00-0.02); NRBC Auto 0.6 /100 WBC (0.0-0.2); Platelet Count 123 K/mm3 (150-400); RDW Coefficient Variation 16.8 % (11.7-14.2); RDW Standard Deviation 53.5 fL (35.1-46.3)
[2019-02-05 05:19] LABS: Albumin, Blood 2.3 g/dL (3.4-5.0); Anion Gap 10 mmol/L (6-16); Blood Urea Nitrogen 102 mg/dL (8-24); Bun/Creatinine Ratio 28.7 (12.0-20.0); CO2, Blood 23 mmol/L (21-32); Calcium, Blood 7.5 mg/dL (8.5-10.1); Chloride, Blood 107 mmol/L (98-108); Creatinine, Blood 3.55 mg/dL (0.60-1.20); Glomerular Filtration Rate 18 (60-); Glucose, Blood 78 mg/dL (70-99); Phosphorus, Blood 4.5 mg/dL (2.5-4.9); Potassium, Blood 3.9 mmol/L (3.5-5.5); Sodium, Blood 140 mmol/L (136-145); Vancomycin, Random 17.2 ug/mL
--- NOTE | 2019-02-05 06:00 | NUR ---
SHIFT SUMMARY...PANIC EPISODES ON AND OFF. NO ACUTE CAUSE NOTED. 8L NEEDED THRU NOC FOR CPAP AND NC. . NOT MUCH CHANGE FROM ABOVE
[2019-02-05 06:21] LABS: BAND PERCENT MAN 1 % (0-8); BASOPHILS PERCENT MAN 0 % (0-2); EOSINOPHILS PERCENT MAN 0 % (0-6); LYMPHOCYTES PERCENT MAN 2 % (21-46); METAMYELOCYTE ABSOLUTE MAN 0.05 K/mm3 (0.00-0.00); METAMYELOCYTE PERCENT MAN 1 % (0-0); MONOCYTES ABSOLUTE MAN 0.15 K/mm3 (0.16-1.47); MONOCYTES PERCENT MAN 3 % (4-13); MYELOCYTE ABSOLUTE MAN 0.05 K/mm3 (0.00-0.00); MYELOCYTE PERCENT MAN 1 % (0-0); NEUTROPHILS ABSOLUTE MAN 4.74 K/mm3 (1.96-9.15); SEG NEUTROPHILS PERCENT MAN 92 % (41-73); TOTAL CELLS COUNTED 100
--- NOTE | 2019-02-05 12:00 | NUR ---
MALLY RN TO ASSUME CARE, REPORT GIVEN. PT HAS BEEN RESTLESS T/O MORNING. AND DAUGHTER IN RM. PT IS UP IN CHAIR. WAS ABLE TO VOID THIS AM. DID DISCUSS BLADDER SCAN RESULTS WITH DR LUNSFORD THIS AM, REC'D ORDER TO CONT BLADDER SCANS PRN AND TO STRAIGHT CATH OR PLACE KRUEGER IF NEEDED. PALLIATIVE CARE IN EARLIER TO VISIT WITH , WILL CONT CURRENT PLAN OF CARE.
--- NOTE | 2019-02-05 12:36 | NUR ---
REPORT RECEIVED FROM STEVEN MAR, NO ACUTE ISSUES NOTED, PATIENT IN BED RESTING QUIETLY IN BED. WILL CONTINUE TO MONITOR FOR CHANGES.
--- NOTE | 2019-02-05 12:50 | NUR ---
Met with pt's this morning. remains confused and aggitated at times. Staff report that he did not sleep well last night. Spoke with Dr. Beltran who asked if pt may have restarted drinking ETOH recently, history of ETOH and smoking 30-40 years ago per H&P. His anxiety, aggitation, hallucinations, tremors have increased over the past few days. Spoke with 's this morning. She states that he has not had any ETOH in the past 5-10 years, "not even wine." In dicussing his current symptoms, she stated that about 10 years ago when was traveling the country with a friend he had a tooth infection and ended up being hospitalized in [place] with very similar symptoms to what he is having now. She stated that he was treated for the infection and "One day just got better and was back to his old self." She reports about two weeks ago was to have a root canal, however this was complicated by a dry socket and an infection. She is wondering if maybe the tooth infection again triggered this episode. has been exhibiting signs in past days that are similar to delerium type symptoms. Infection, pain, constipation, poor kidney function, environmental changes could all possibly be adding to his symptoms. His states that he is very much driven by his routines and the fact that he is in the hospital and not able to carry out his normal routines is likely adding to his aggitation. 's stated that today he does seem to be a little bit more like himself. He is a little more alert and words are more easily understood. He is starting to make more urine and his kidney function is about the same as it was yesterday per lab testing. She states she is hopeful that he will return to his baseline and be able to come home with her. She reports that she would be interested in [facility] if he declines or needs SNF for rehab. Dr. Beltran and Iliana Garza CM, updated on conversation with pt's . PC will continue to follow for symptom management.
--- NOTE | 2019-02-05 14:00 | NUR ---
REC'D REORT FROM DENNY MAR. PT IN BED. RESTING ONE MINUTE, THEN FLAILING THE NEXT. BECOMES VERY RESTLESS AND PANICS AT TIMES. NEEDING FREQ REASSURANCE, IS REDIRECTABLE. WILL PULL OFF TELE LEADS AND O2/CPAP. CONT BIOX ON R FOOT. CONT TO MONITOR
--- NOTE | 2019-02-05 18:45 | NUR ---
NO ACUTE CHANGES NOTED. PATIENT HAS MOMENTS OF CLARITY AND THEN GETS CONFUSED AGAIN, HE GET VERY ANXIOUS WHEN HE IS UP AND MOVE DOWN FOR THE CHAIR TO THE COMMODE OR BED. HIS O2 SATS HAVE AMINTIANED IN THE LOW 90'S EVEN WITH ACTIVITY. PATIENT IS VOIDING INDEPENDENTLY NOT REQUIRING STRAIGHT CATH THIS SHIFT. NO CURRENT COMPLAINTS OF PAIN OR DISCOMFORT. PATIENT REQUIRE ORAL CARE OFTEN DUE TO PREVIOUS ORAL SURGERY. WILL CONTINUE TO MONITOR FOR CHANGES.
--- NOTE | 2019-02-05 21:13 | NUR ---
UPDATE PT ALERT, CONFUSED, VERY ANXIOUS W/ RR 30'S-40'S, PULLING AT AND REMOVING CPAP MASK W/ DESAT TO 74%. TIME SPENT ENCOURAGING DEEP BREATHING AND USE OF MASK. PT GRIMACING AND ARCHING BACK. PT TX'D PER EMAR. RR NOW SLOWED TO 20'S W/ PT CALM AND TOLERATING CPAP. PT IN BED W/ BED ALARM ON. WILL CONTINUE TO MONITOR.
[2019-02-06 04:51] LABS: Hemoglobin 8.6 g/dL (13.5-17.5); Mean Corpuscular HGB 26.7 pg (26.0-34.0); Mean Corpuscular HGB Conc 31.9 g/dL (31.5-36.5); Mean Corpuscular Volume 84 fL (80-100); Mean Platelet Volume 10.5 fL (9.1-12.4); Platelet Count 132 K/mm3 (150-400); RDW Standard Deviation 52.2 fL (35.1-46.3); Red Blood Cell Count 3.22 M/mm3 (4.30-5.90); White Blood Cell Count 5.02 K/mm3 (4.00-11.30)
[2019-02-06 05:11] LABS: Albumin, Blood 2.2 g/dL (3.4-5.0); Albumin/Globulin Ratio 0.6 (0.8-1.8); Bilirubin, Total 1.3 mg/dL (0.1-1.0); Bun/Creatinine Ratio 33.7 (12.0-20.0); Calcium, Blood 7.7 mg/dL (8.5-10.1); Creatinine, Blood 2.64 mg/dL (0.60-1.20); Globulin, Blood 3.4 g/dL (2.2-4.0); Potassium, Blood 4.2 mmol/L (3.5-5.5); Total Protein, Blood 5.6 g/dL (6.4-8.2)
[2019-02-06 05:34] LABS: BASOPHILS PERCENT MAN 0 % (0-2); EOSINOPHILS ABSOLUTE MAN 0.05 K/mm3 (0.00-0.68); EOSINOPHILS PERCENT MAN 1 % (0-6); LYMPHOCYTES PERCENT MAN 2 % (21-46); METAMYELOCYTE PERCENT MAN 2 % (0-0); MONOCYTES PERCENT MAN 4 % (4-13); NEUTROPHILS ABSOLUTE MAN 4.56 K/mm3 (1.96-9.15); SEG NEUTROPHILS PERCENT MAN 91 % (41-73); TOTAL CELLS COUNTED 100
--- NOTE | 2019-02-06 06:34 | NUR ---
SHIFT SUMMARY PT ALERT, ORIENTED TO SELF AND FAMILY W/ EPISODES OF ANXIETY AND CONFUSION. PT REQUIRING COACHING TO DEEP BREATHE & REASSURANCE BY STAFF. LUNG SOUNDS COARSE T/O. OCCASSIONAL NONPRODUCTIVE COUGH. TACHYPNEA W/ EPISODES OF ANXIETY. EPISODES OF PT PULLING OFF OXYGEN AND DESATING BEGINNING OF SHIFT, SEE PREVIOUS NOTE. PT PROVIDED REASSURANCE AND REAPPLICATION OF MASK UNTIL THEN MEDICATED PER EMAR W/ NO FURTHER EVENTS T/O SHIFT. PT TOLERATING CPAP W/ BLEED IN OF 8L OR NC @ 7-8L. MONITOR SHOWS NSR W/ BBB. PT UNABLE TO VOID WHILE LAYING IN BED, BUT ABLE TO VOID STANDING AT BEDSIDE USING URINAL OR SITTING ON BEDSIDE COMMODE. PT TOLERATING NECTAR THICK LIQUIDS PROVIDED BY STAFF, PT UNABLE TO FEED SELF. PT CONTINUES TO BE TREMULOUS. ORAL CARE PROVIDED T/O SHIFT W/ THOROUGH CLEANING OF SPACE OF EXTRACTED TOOTH. PT IN BED W/ CALL LIGHT IN REACH. WILL CONTINUE TO MONITOR AND PROVIDE CARE UNTIL REPORT OFF TO DAY SHIFT RN.
--- NOTE | 2019-02-06 12:58 | NUR ---
Assumed care of pt at approx 0700. Pt in slight respiratory distress, tachypneic, and with obvious work to breathe. Morphine 2 mg given per eMAR effective to relieve anxiety and improve respiratory function. CPAP taken off pt per request and pt on 7L NC tolerating O2 > 90%. at bedside with pt. All other VSS. Pt did not eat breakfast or lunch. Dr. Beltran in this AM with pt. states to family pt improvement from yesterday. Dr. Beltran states to expected D/C next week. Pt still presenting with moderate confusion, delusion, and c/o visual hallucinations. HR trending downward congruent with administration of morphine. Pt HR down to 48 per school lunch monitor. Pt asymptomatic, BP stable. See shift assessment for detailed assessment, will continue to monitor and update as appropriate
--- NOTE | 2019-02-06 18:32 | NUR ---
Spiritual Care initial visit: Lengthy visit with pt's , Willow. She shared me with stories of Girish' dependabilty, pride, intelligence, and dignity. Willow is deeply distressed seeing Girish so confused and uncomfortable. "He would not want to go on like this." She tells me she has gotten few answers as to why he has declined so quickly, and she "has a feeling" Girish is nearing end-of-life. Jezguerline is concerned about Girish maintaining his dignity. She is considering comfort measures. Willow and I had an easy rapport and she responded well to theraputic listening and emotional affirmation. She is clearly emotionally and physically exhausted. Neither she or Girish are church. I strongly encouraged self-care and leaning on their adult children for strength/support. I will continue to provide support to pt and family in coming days.
--- NOTE | 2019-02-06 19:16 | NUR ---
Shift Summary pt continues to decline this shift, pt difficult to arouse but arousable to pain and loud voice. pt currently remains in recliner d/t inability to safely transfer pt to bed at this time. total of 4mg morphine given per eMAR this shift, 2mg at approx 0730 and 2 mg at approx 1230. pt hypotensive and bradycardic. md aware. pt currently on cpap with 8l bleed in maintaining sats at 87% at this time. plan is to have pt be comfort care per family wishes, call [facility] tomorrow to arrange hospice/comfort care through [facility]. report given to Kristie santiago rn.
--- NOTE | 2019-02-06 19:42 | NUR ---
Called to meet with family and see patient. having distress at patients change in status and she is with chaplian. pt aggitated difficulty tracking interactions with nurse. pt tremulous and restless. heart rate in 50's requiring more oxygen and b/p trending down. Respirations labored pt startles easily. Review of chart and patient history. No POLST of AD on file. Review of trending with charge nurse and bedside nursing. Suggest pharmacy review of medications for polypharmacy and renal dosing. Review of past dental issues. Met with . She states patient has an advance directive at home. She does not have a copy. Copy requested from [place] medical records. Pt states that they have had discussion of what they want if they become debilitated. Pt was very active and heathey until his dental infection and extensive dental care. She is unsure of why the decline was sudden and fast. Review with how General health issues such as infections can trigger a cascade of decline, Review of the stress he experienced with his oral health and treatment. Review of his cardiac event and procedural care. Also discussed his pneumonia and renal disease and stress. He has a long history of PTSD coupled with these events and the BIPAP, aggitation and bouts of air hunger his stress is significant. Careful conversation of staying the course and more time and possibly getting more care from [facility] services. Her main question is will he return to his past function. Stated he will need rehabilitation and it is unknown. Reviewed stress to his heart and kindeys. Review with her of the past six months she presents some signs of decline. At this time she still chooses comfort care. Mrs Srinivasan is basing her decision and plan on respecting their conversations about function and life and his expressed wishes. She expressed that his illness is causing to much suffering and he has had a strong wish to not experience debility or prolonged suffering. Pt may not qualify for hospice. He is service connected. Reviw of plan with charge nurse in AM to contact [facility] for supportive plan of care. Advised nursing staff about his startle response and PTSD care needs. Pt was unable to pariticate in in decision or conversation. Will update care managers. Careful team review of wifes wishes with bedside nurse , Charge nurse and chaplian. Team review of chart and any other possible information we could offer the or patient or physician. Pt transitioned to comfort care.
--- NOTE | 2019-02-06 23:06 | NUR ---
CALL TO MARIE LÓPEZ @ APPROX 2300 D/T PT PANICKING STATING "I CAN'T BREATHE! I CAN'T BREATHE!" PT WRIPPING OFF OXYGEN AND TELEMETRY LEADS, AND THRASHING IN BED. PT PREVIOUSLY MEDICATED W/ MORPHINE PER EMAR. ORDER FROM MARIE LÓPEZ AT THIS TIME FOR ATIVAN W/ INSTRUCTION TO REID LOBO AND MORNING LABS.
--- NOTE | 2019-02-07 05:06 | NUR ---
SHIFT SUMMARY PT INTERMITTENTLY ALERT, DIFFICULT TO AROUSE, LUCID, OR CONFUSED T/O SHIFT. EPISODES OF TACHYPNEA & LABOROUS BREATHING IN WHICH PT PANICKING AND STATING "I CAN'T BREATHE!" AND WRIPPING OFF OXYGEN AND CORDS. PT REASSURED, BREATHING/OXYGEN ASSESSED, AND PT MEDICATED W/ PRN MORPHINE AND ATIVAN PER EMAR. PT REQUIRING FREQUENT REASSURANCE AND COACHING FOR BREATHING. PT BEGAN SHIFT WEARING HIGH FLOW CANULA @ 8L OR CPAP W/ 8L BLEED IN, TITRATED TO HIGH FLOW @ 10L AND/OR CPAP W/ 13L BLEED IN THIS SHIFT. PT STOOD AT BEDSIDE TO VOID DARK, FOUL SMELLING URINE X1 THIS SHIFT. BLADDER SCAN THEN DONE AFTER PT UNABLE TO VOID AFTER ATTEMPT X2 TO URINATE. 568 MLS URINE DETECTED W/ BLADDER SCAN. KRUEGER CATHETER PLACED PER STANDING PRN ORDER. KRUEGER CATH PATENT AND DRAINING DARK YELLOW URINE. UA SENT. WILL CONTINUE TO MONITOR AND PROVIDE CARE UNTIL REPORT OFF TO DAY SHIFT RN.
[2019-02-07 06:15] LABS: Source, Urine Catheter
[2019-02-07 06:27] LABS: Appearance, Urine Clear (Clear); Bilirubin, Urine Neg (Neg); Blood, Urine 4+ (Neg); Color, Urine Yellow (P-Yellow); Glucose Qualitative, Urine Neg (Neg); Ketones, Urine Neg (Neg); Leukocyte Esterase, Urine Neg (Neg); Nitrite, Urine Neg (Neg); Protein, Urine 2+ (Neg); Urobilinogen, Urine NORM (Normal)
[2019-02-07 06:39] LABS: Bacteria Few /hpf; Squamous Epithelial Cells Not Seen /hpf (Few); White Blood Cells, Urine 0-2 /hpf (0-5)
[2019-02-07 06:40] LABS: Granular Casts 0-2 /lpf (0)
[2019-02-07 08:17] LABS: Albumin, Blood 2.3 g/dL (3.4-5.0); Anion Gap 7 mmol/L (6-16); Blood Urea Nitrogen 80 mg/dL (8-24); Bun/Creatinine Ratio 35.6 (12.0-20.0); CO2, Blood 24 mmol/L (21-32); Calcium, Blood 8.1 mg/dL (8.5-10.1); Chloride, Blood 114 mmol/L (98-108); Creatinine, Blood 2.25 mg/dL (0.60-1.20); Glomerular Filtration Rate 30 (60-); Glucose, Blood 110 mg/dL (70-99); Phosphorus, Blood 3.6 mg/dL (2.5-4.9); Potassium, Blood 4.2 mmol/L (3.5-5.5); Sodium, Blood 145 mmol/L (136-145)
--- NOTE | 2019-02-07 11:29 | NUR ---
Met with family in Pt's room this AM. Pt's bedside nurse Aleena Rodgers from palliative care, PCU charge nurse, Pt's daughter, and Pt's Rodney present during visit. Discussion was made regarding goals of care. Rodney reports that she would like more answers of reason for Pt's current condition before establishing a plan of care including comfort care. Care team that is present during visit is agreeable with family wishes and need for further testing. Spoke with Dr Beltran regarding meeting with family and care team. Reported family wishes of further testing and answers before determining goals of care. At this time Dr Beltran is agreeble for Pulmonary consult. Place pulmonary consult per V/O from Dr Beltran. Reported to Pt's bedside nurse Ana Maria of plan at this time and she is agreeable. Palliative Care will remain available.
--- NOTE | 2019-02-07 12:03 | NUR ---
0700 assumed care of pt. comfort care orders in place and provided care per these orders/protocol. all PO medications held d/t pt inability to swallow pills safely. 0800 , Rodney, called and asked for update. update given by integration project manager. Dr Beltran at bedside at this time, will continue with comfort care orders per dr. beltran. dr beltran states to this RN to call when , Rodney, arrives to update pt condition. Palliative care called at this time to continue consult with family, Alexandro Combs RN involved and aware of care. ISABELA Mc asked this RN to call when comes so he and Master Chef Deborah can be involved in conversation with and Dr. Beltran. 1000 Pt daughter and grandson at bedside. Pt agitated, anxious, and in moderate respiratory distress. Pt confused and not redirectable. Oral care provided. Ativan 1mg given. pt resting comfortably with oxygen saturation >90% on CPAP with 12L bleed-in. 1030 at bedside with pt. ISABELA Mc and Chaplain Cabrera at bedside with . Dr. Beltran called and aware of 's presence but states that he is unavailable to round at this time. would like to temporarily suspend comfort care. She would like more tests ordered to determine why pt respiratory and neurological status has declined. 1130: Dr Rogers consulted to assess pt to provide more insight on pt. respiratory decline per dr. beltran order. Dr. Rogers states he will see pt. at approx 1600 today, 02/07/19. Head CT ordered by Dr. Beltran. Family updated on most recent plan of care. 1200 Pt. out of room for head CT on 100% non rebreather at 15L with o2 saturations >90% 1220 pt back to room. Transferred from [facility] to bed and placed back on CPAP with 12L bleed in.
[2019-02-07 16:28] LABS: PCO2 Arterial 33.7 mmHg (35-45); PO2 Arterial 65.7 mmHg (80-100); pH Blood Arterial 7.42 (7.35-7.45)
--- NOTE | 2019-02-07 16:54 | NUR ---
Spritual Care Visit: Met with Dinah and Girish at bedside. Girish said very little. Dinah tells me that because "they took a sputum culture this morning" she believes "this may all just be an infection and that is treatable." I know both pt and spouse have had it explained to them how dire Girish' dx is, and neither of them appear prepared to face this. In fact, Dinah admits to feeling irritated that "everyone keeps telling us he is going to soon." It is hard for them to understand Girish' poor prognosis because he is licid, talking, getting up (with PT). I suspect they may only come to terms with Girish' decline if he begins to suffer. To their eyes, he is holding his own. Numerous family members arriving in next few days. They too, are unaware that Girish' is nearing end-of-life. All that said, we have a good rapport, as I have not affirmed Girish' decline. I provided prayer and listend to stories from their life. Dinah remains emotionally fragile. Academic Department Chair services will remain available.
--- NOTE | 2019-02-07 17:24 | NUR ---
SHIFT SUMMARY Pt transitioned from comfort care back to treatment per family request. Dr. Beltran, Dr. Rogers, Palliative care, nursing care, and spiritual care all notifed and aware of updated plan of care for pt. ABX continued this shift and currently infusing per MAR orders. Family at bedside on and off this shift. Pt now home for evening. Pt would like to be called if any changes in pt condition occur overnight. Pt NPO at this time d/t not alert enough to swallow safely. Gracia care provided this shift. Total of 2mg ativan given this shift. twice this shift pt suddenly became very anxious, confused, disoriented, and agitated. during those two times, pt pulling of cpap constanly and not maintaining o2 saturations without cpap. ativan given per orders when pt presented with above agitation and relaxed to facilitate repirations wnl and o2 saturations >90% and tolerates CPAP. Pt arousable to pain with ativan 1mg. Will continue to monitor and provide care until report given to [facility] nurse.
[2019-02-08 04:15] LABS: Albumin, Blood 2.5 g/dL (3.4-5.0); Anion Gap 8 mmol/L (6-16); Blood Urea Nitrogen 70 mg/dL (8-24); Bun/Creatinine Ratio 40.5 (12.0-20.0); CO2, Blood 23 mmol/L (21-32); Calcium, Blood 8.5 mg/dL (8.5-10.1); Chloride, Blood 118 mmol/L (98-108); Creatinine, Blood 1.73 mg/dL (0.60-1.20); Glomerular Filtration Rate 41 (60-); Glucose, Blood 179 mg/dL (70-99); Phosphorus, Blood 3.2 mg/dL (2.5-4.9); Potassium, Blood 4.4 mmol/L (3.5-5.5); Sodium, Blood 149 mmol/L (136-145)
--- NOTE | 2019-02-08 04:56 | NUR ---
SHIFT SUMMARY PT CONTINUES TO HAVE EPISODES OF PANIC AND AGITATION, PULLING AT AND REMOVING CPAP W/ C/O NOT BEING ABLE TO BREATHE. PT ASSISTED W/ SITTING MORE UPRIGHT W/ DEEP BREATHING COACHING, BUT PT UNCOACHABLE IN EPISODES OF PANIC DESPITE EFFORTS OF CALMING. MEDICATION PROVIDED PER EMAR: ATIVAN GIVEN X3 THIS SHIFT, MORPHINE X1. LUNG SOUNDS CLEAR, DIM IN BASES. SPO2 > 90% ON CPAP W/ 8-12L BLEED IN, OR 7-10L HIGH FLOW CANULA. KRUEGER CATH PATENT AND DRAINING. PT CALMLY SLEEPING AT THIS TIME. PT'S CALLED DURING NIGHT EXPRESSING INTENTIONS TO COME IN TO SEE PT DURING THE DAY MONDAY W/ PT'S SON. WILL CONTINUE TO MONITOR AND PROVIDE CARE UNTIL REPORT OFF TO DAY SHIFT RN.
--- NOTE | 2019-02-08 08:43 | NUR ---
Shift note assumed care of pt at approx 0700. pt resting comfortably, with cpap in place with 7L bleed in. Pt hypertensive but otherwise vss. Pt suddenly awoke from comfortable resting and abruptly became agitated. pt began ripping off cpap, flailing arms around, became non-redirectable, hyperventilating, and anxious. Three RN's in room with pt trying to calm with repositioning, therapeutic breathing, and placed hiflow NC on pt at 9L. Pt remains unstable with agitation. Dr. Beltran in with pt at this time and orders transfer to ICU 13 for Precedex drip. Report given to ICU 13 RN and all questions answered. Pt transferred with 2 RNs via bed at 0845.
--- NOTE | 2019-02-08 09:44 | NUR ---
ASSUMED CARE: PT ARRIVED TO ICU 13 VIA BED. PT VERY AGITATED UPON ARRIVAL. 1MG ATIVAN GIVEN TO AIDE IN GETTING PT OVER TO NEW BED AND TO BE ABLE TO START NEW IV. PT DIDN'T SEEM TO CALM VERY MUCH WITH THE ATIVAN, BUT DID CALM IMMEDIATELY ONCE THE CPAP WAS PUT ON HIM. PT'S BP ALSO INTIALLY READ SBP IN THE 60S ON THE FOREARM, BUT RECHECK ON THE UPPER ARM AND MANUAL BP ALL READ WITH SBP ABOVE 150. DR. VORA ORDERED A PRN BOLUS IN CASE PT DOES END UP BEING HYPOTENSIVE. PT HAD TO BE PLACED IN RESTRAINTS TOO BECAUSE EVEN THOUGH PT IS CALMER WITH CPAP ON HE STARTS PULLING AT THE MASK AND LINES WITH MINIMAL STIMULATION. PRECEDEX GTT STARTED TO HELP KEEP PT CALM. RT AND DR. VORA IN THE ROOM AND SWITCHED PT TO BIPAP. PT RESTING QUIETLY CURRENTLY. IV FLUIDS INCREASED TO 100ML/HR PER DR. VORA. CONTINUING TO MONITOR.
--- NOTE | 2019-02-08 12:23 | NUR ---
REASSESSMENT: PT CONTINUES TO BE VERY CONFUSED, DISORIENTED TO HIMSELF EVEN, NOT FOLLOWING DIRECTIONS OR REDIRECTABLE AT ALL. WHEN LEFT ALONE HE IS CALM AND SLEEPS, BUT WITH MINIMAL STIMULATION HE STARTS PULLING ON RESTRAINTS AND GETTING AGITATED. LUNGS ARE CLEAR BUT DIM, SR, BP STABLE WITH SBP IN THE 140S. DOBHOFF WAS PLACED WITH SOME DIFFICULTY SINCE PT IS NOT ABLE TO FOLLOW DIRECTIONS, AWAITING CONFIRMATION BEFORE STARTING TUBE FEEDS. KRUEGER DRAINING YELLOW URINE. FAMILY IS AT THE BEDSIDE AND HAS BEEN FULLY UPDATED BY NURSING STAFF AND DR. VORA. CONTINUING TO MONITOR.
--- NOTE | 2019-02-08 13:47 | NUR ---
DOBHOFF PLACEMENT CONFIRMED VERBALLY FROM DR. VORA. STATED THAT IT COULD ADVANCE ABOUT 4 INCHES TO GET TO THE DUODENUM, BUT IT IS CURRENTLY IN THE STOMACH AND OK TO USE. ATTEMPTED TO ADVANCE THE TUBE, BUT PT GOT AGITATED AGAIN AND THE TUBE KEPT CURLING IN HIS MOUTH. TUBE IS CURRENTLY AT ABOUT 68CM. TUBE FEED STARTED.
[2019-02-08 15:06] LABS: A/G RATIO 1.1 (0.7-1.7); ALBUMIN 2.4 g/dL (2.9-4.4); ALPHA-1-GLOBULIN 0.3 g/dL (0.0-0.4); ALPHA-2-GLOBULIN 0.9 g/dL (0.4-1.0); BETA GLOBULIN 0.5 g/dL (0.7-1.3); GAMMA GLOBULIN 0.7 g/dL (0.4-1.8); GLOBULIN, TOTAL 2.4 g/dL (2.2-3.9); IMMUNOGLOBULIN A, QN, SERUM 114 mg/dL (61-437); IMMUNOGLOBULIN G, QN, SERUM 663 mg/dL (700-1600); IMMUNOGLOBULIN M, QN, SERUM 177 mg/dL (15-143); M-SPIKE Not Observed g/dL (Not Observed); PROTEIN, TOTAL, SERUM 4.8 g/dL (6.0-8.5)
--- NOTE | 2019-02-08 16:10 | NUR ---
Checked in with Chief this afternoon. He was moved from PCU to ICU earlier today. He is currently on bipap and sedated on a precedex gtt. He appears to be resting comfortably at this time. No family is currently in pt's room. Nursing reports pt is easily aggitated with care and noise. Even holding his hand seems to aggitate him per nursing report. PC will continue to follow. Pt has been hospitalized since 01/27/19. His kidney function is slowly improving but his mentation has not. Will remain available for pt and family support.
--- NOTE | 2019-02-08 18:01 | NUR ---
SHIFT SUMMARY: PT HAS ON THE BIPAP AND PRECEDEX THROUGHOUT THE SHIFT. HE IS A LITTLE MORE AWAKE THIS EVENING, YELLING OUT THROUGH THE BIPAP OCCASIONALLY. HE REMAINS COMPLETELY DISORIENTED, NOT FOLLOWING DIRECTIONS. PRECEDEX TITRATED UP TO HELP WITH PT'S AGITATION. LUNGS REMAIN CLEAR, JUST DIM. SR, SARAN DOWN TO THE 50S AT TIMES. BP STABLE. FOLEYW ITH ABOUT 800 ML OF CL YELLOW OUTPUT. TOLERATING TUBE FEED. PT'S FAMILY CAME IN AGAIN THIS AFTERNOON TO CHECK ON PT. THEY HAVE BEEN FULLY UPDATED BY MDS AND NURSING STAFF.
--- NOTE | 2019-02-09 00:44 | NUR ---
ASSUMED PT CARE AT 1915 PT IN BED WITH BIPAP IN PLACE; 23/07 WITH FIO2 35%; OXYGEN SATURATIONS 96%. PT EASILY AGITATED AND BECOMES VERY RESTLESS QUICKLY. PRECEDEX GTT RUNNING AT 0.4MCG/KG/HR, WELL D5W 1/2 NS AT 100MLS/HR. PT UNABLE TO FOLLOW COMMANDS OR ANY DIRECTION. UNABLE TO ASSESS MENTATION PT CONTINUES TO THRASH HEAD BACK AND FORTH WITH NO VERBAL RESPONSES; JUST MOANING/GROANING NOISES. MEDICATED WITH PRN ATIVAN AND MORPHINE SULFATE, WHICH WERE BOTH EFFECTIVE IN MANAGING PT'S AGITATION AND RESTLESSNESS. BILATERAL WRIST RESTRAINTS REMAIN IN PLACE SECONDARY TO PT PULLING AT LINES AND BIPAP MASK; UNABLE TO REDIRECT. KRUEGER CATH IS PATENT AND DRAINING TO GRAVITY. PIVOT 1.5 INFUSING AT 25MLS/HR UPON ASSUMING PT CARE VIA DOBHOFF; INCREASED TO 40MLS/HR AT 2300. PT REPOSITIONED FOR COMFORT. NO FAMILY AT BEDSIDE.
[2019-02-09 03:29] LABS: Hematocrit 29.6 % (37.0-53.0); Hemoglobin 8.9 g/dL (13.5-17.5); Mean Corpuscular HGB Conc 30.1 g/dL (31.5-36.5); Mean Platelet Volume 10.7 fL (9.1-12.4); Platelet Count 158 K/mm3 (150-400); RDW Coefficient Variation 17.5 % (11.7-14.2); RDW Standard Deviation 57.6 fL (35.1-46.3); White Blood Cell Count 4.73 K/mm3 (4.00-11.30)
[2019-02-09 03:48] LABS: Mean Corpuscular Volume 90 fL (80-100)
[2019-02-09 03:51] LABS: Bun/Creatinine Ratio 37.3 (12.0-20.0); Calcium, Blood 7.9 mg/dL (8.5-10.1); Creatinine, Blood 1.53 mg/dL (0.60-1.20); Potassium, Blood 4.5 mmol/L (3.5-5.5)
[2019-02-09 04:01] LABS: BAND PERCENT MAN 2 % (0-8); BASOPHILS PERCENT MAN 0 % (0-2); EOSINOPHILS ABSOLUTE MAN 0.04 K/mm3 (0.00-0.68); EOSINOPHILS PERCENT MAN 1 % (0-6); LYMPHOCYTES ABSOLUTE MAN 0.18 K/mm3 (0.84-5.20); LYMPHOCYTES PERCENT MAN 4 % (21-46); METAMYELOCYTE ABSOLUTE MAN 0.14 K/mm3 (0.00-0.00); METAMYELOCYTE PERCENT MAN 3 % (0-0); MONOCYTES ABSOLUTE MAN 0.23 K/mm3 (0.16-1.47); MONOCYTES PERCENT MAN 5 % (4-13); MYELOCYTE ABSOLUTE MAN 0.09 K/mm3 (0.00-0.00); MYELOCYTE PERCENT MAN 2 % (0-0); NEUTROPHILS ABSOLUTE MAN 4.02 K/mm3 (1.96-9.15); SEG NEUTROPHILS PERCENT MAN 83 % (41-73); TOTAL CELLS COUNTED 100
[2019-02-09 05:24] LABS: pH Blood Arterial 7.43 (7.35-7.45)
--- NOTE | 2019-02-09 05:40 | NUR ---
DR. PALOMO UPDATED REGARDING LABS: NA 152 AND PHOS 2.0 NEW ORDERS FOR D5W AT 75MLS/HR DC D5 1/2 NS K PHOS 30 MMOL IV NOW
--- NOTE | 2019-02-09 05:52 | NUR ---
END OF SHIFT SUMMARY PT HAS REMAINED ON BIPAP T/O NIGHT; SETTINGS 15/10; FIO2 35% WITH OXYGEN SATURATIONS 95%. PT HAS NOT BEEN ABLE TO FOLLOW ANY COMMANDS; DOES NOT OPEN EYES TO VERBAL STIMULI. UNABLE TO ASSESS MENTATION. PRECEDEX GTT AT 0.2 MCG/KG/HR D/T DECREASED HR TO THE 40'S; PRECEDEX GTT AT 0.4MCG/KG/HR MOST OF NIGHT. PIVOT 1.5 INCREASED TO 40MLS/HR AT 2300; DUE TO INCREASE TO GOAL OF 50MLS/HR AT 0700. KRUEGER IS PATENT AND DRAINING MALLY COLORED URINE WITH HEAVY SEDIMENT NOTED. REPOSITIONED FOR COMFORT. NO FAMILY AT BEDSIDE T/O SHIFT.
--- NOTE | 2019-02-09 08:00 | NUR ---
Recieved report from Olinda MAR. Patient resting in bed with BIPAP in place and was on mild sedation of Precedex which i placed on standby. He has minimaal response to painful stimuli and is not verbal at this time. His BIPAP settings are 15/10 and sats 95%. He has Dobhoff inplace infusing Pivot 1.5 at 40ml/hr with 300 ml free water for high sodium. He has 20ga IV in RFA dressing intact and infusing Potassium Phos to assist with low phos today. He also has 18 ga IV in YOUSIF dessing intact and site WNL's and is flushed and SL'd. He has 16Fr Gracia draining to gravity meek colored urine. He has bilateral soft wrist restraints in place to protect lines and tubes, they were released to check skin and circulation and re-applied.
--- NOTE | 2019-02-09 10:00 | NUR ---
Family in room and patient starteing to get agitated and turned back on precedex 0.2 mcg/kg/hr and increased BIPAP to FiO2 to 50% for short period until relaxed again. Changed TF lines out and gave meds per Dobhoff.
--- NOTE | 2019-02-09 11:16 | NUR ---
Patient BIPAP FiO2 reduced to 40% and sats 97% and Precedex at 0.2 mcg/kg/hr and he is resting comfortably. Dr Beltran came and sat with family and had talk for about thirty minutes and they are happy to wait alittle longer to see if he will turn around with current treatment.
--- NOTE | 2019-02-09 15:41 | NUR ---
PATIENT CONTINUES TO UNRESPONSIVE TO VERBAL STIMULI AND EYE OPENING. HE CONTINUES TO BE ON BIPAP 12/10 AND FiO2 40% WITH SATS MID 90%'s. PRECEDEX AT 0.7MCG/KG/HR AND HE HAS REMAINED RELAXED FOR AWHILE WITH PERIODS OF AGITATION. I HAVE MEDICATED WITH MORPHINE 2MG AND ATIVAN 2MG TO HELP WITH AGIATATION
--- NOTE | 2019-02-09 18:00 | NUR ---
Patient continues to be anxious at times. Dr Rogers notified of rates with High volumes and increased agitation and no new orders and stated no BIPAP change. He has equally as many calm periods. He is slightly hypertensive r/t agitaion. called to check on him. HR in the 50-60's.
[2019-02-09 21:10] LABS: Vancomycin, Trough 16.6 ug/mL (5.0-10.0)
--- NOTE | 2019-02-09 21:30 | NUR ---
ASSUMED PT CARE AT 1915 PT IN BED WITH BIPAP MASK IN PLACE; SETTINGS 15/10; FIO2 30%. PRECEDEX GTT AT 0.7MCG/KG/HR. PT ABLE TO OPEN EYES TO VERBAL STIMULI; UNABLE TO FOLLOW COMMANDS. BILATERAL SOFT WRIST RESTRAINTS REMAIN IN PLACE SECONDARY TO PT NOT BEING DIRECTABLE AND ATTEMPTS TO PULL OFF MASK. EASILY AGITATED AND BECOMES RESTLESS; MEDICATED WITH PRN MORPHINE ORDERED. OXYGEN SATURATIONS MAINTAIN IN MID 90'S, BUT WHEN PT BECOMES AGITATED; OXYGEN SATURATIONS QUICKLY DECLINE TO MID 80'S AND ARE SLOW TO RECOVER. PRECEDEX GTT TITRATED FOR AGITATION; HOWEVER, HR QUICKLY DROPS TO LOW 40'S WHEN PRECEDEX REMAINS ON, EVEN AT LOWER DOSES. PROPANOLOL HELD SECONDARY TO LOW HR. PIVOT 1.5 CONTINUES AT 40MLS/HR; BOWEL TONES ARE ACTIVE; ABDOMEN IS DISTENDED AND FIRM. KRUEGER CATH REMAINS PATENT AND DRAINING DARK, MALLY URINE WITH BLOOD NOTED AND HEAVY SEDIMENT; POSSIBLE TRAUMA D/T PT'S RESTLESSNESS/AGITATION. MOVED STAT LOCK UP HIGHER ON LEG TO PREVENT ANY PULLING ON CATHETER. UPON START OF SHIFT BOTH PERIPHERAL IV'S WERE NOT PATENT; BOTH WERE PULLED AND NEW ONES WERE OBTAINED THAT WERE PATENT. NO FAMILY AT BEDSIDE.
--- NOTE | 2019-02-10 00:10 | NUR ---
CALL TO DR. SERRANO PT BECOMING VERY AGITATED/RESTLESS QUICKLY AND CONTINUED TO DROPPING OXYGEN SATURATIONS WITH SLOW RECOVERY EVEN WITH BIPAP ON 23/07. FIO2 INCREASED FROM 30% TO 100% WITH OXYGEN SATURATIONS IMPROVING FROM LOW 80'S TO LOW 90'S; RESTARTED PRECEDEX GTT AT 1.4MCG, BUT UNSURE HOW LONG WE WILL BE ABLE TO MAINTAIN PRECEDEX D/T HR IN THE LOW 40'S. NEW ORDERS FOR FENTANYL 25-50MCG ADJUNCT SEDATION Q4HRS PRN.
[2019-02-10 03:31] LABS: BASOPHILS ABSOLUTE AUTO 0.01 K/mm3 (0.00-0.23); BASOPHILS PERCENT AUTO 0 % (0-2); EOSINOPHILS ABSOLUTE AUTO 0.02 K/mm3 (0.00-0.68); EOSINOPHILS PERCENT AUTO 0 % (0-6); Hematocrit 29.5 % (37.0-53.0); Hemoglobin 9.1 g/dL (13.5-17.5); IMMATURE GRAN ABSOLUTE AUTO 0.25 K/mm3 (0.00-0.10); IMMATURE GRAN PERCENT AUTO 4 % (0-1); LYMPHOCYTES ABSOLUTE AUTO 0.72 K/mm3 (0.84-5.20); LYMPHOCYTES PERCENT AUTO 13 % (21-46); MONOCYTES ABSOLUTE AUTO 0.35 K/mm3 (0.16-1.47); MONOCYTES PERCENT AUTO 6 % (4-13); Mean Corpuscular HGB 27.4 pg (26.0-34.0); Mean Corpuscular HGB Conc 30.8 g/dL (31.5-36.5); Mean Corpuscular Volume 89 fL (80-100); Mean Platelet Volume 10.1 fL (9.1-12.4); NEUTROPHILS ABSOLUTE AUTO 4.36 K/mm3 (1.96-9.15); NEUTROPHILS PERCENT AUTO 76 % (41-73); NRBC ABSOLUTE 0.03 K/mm3 (0.00-0.02); NRBC Auto 0.5 /100 WBC (0.0-0.2); Platelet Count 148 K/mm3 (150-400); RDW Coefficient Variation 17.7 % (11.7-14.2); RDW Standard Deviation 57.6 fL (35.1-46.3); Red Blood Cell Count 3.32 M/mm3 (4.30-5.90); White Blood Cell Count 5.71 K/mm3 (4.00-11.30)
[2019-02-10 03:57] LABS: Albumin, Blood 2.1 g/dL (3.4-5.0); Albumin/Globulin Ratio 0.5 (0.8-1.8); Bilirubin, Total 0.8 mg/dL (0.1-1.0); Bun/Creatinine Ratio 39.6 (12.0-20.0); Calcium, Blood 8.1 mg/dL (8.5-10.1); Creatinine, Blood 1.34 mg/dL (0.60-1.20); Globulin, Blood 3.9 g/dL (2.2-4.0); Magnesium, Blood 2.7 mg/dL (1.6-2.4); Phosphorus, Blood 2.9 mg/dL (2.5-4.9); Potassium, Blood 5.3 mmol/L (3.5-5.5)
--- NOTE | 2019-02-10 06:29 | NUR ---
END OF SHIFT SUMMARY PT HAS REMAINED ON BIPAP T/O NIGHT WITH NO BREAKS OTHER THAN FOR ORAL CARE. BIPAP PRESSURE REMAINS AT 15/10; FIO2 30%. PT ABLE TO OPEN EYES TO VERBAL STIMULI; HOWEVER, UNABLE TO FOLLOW DIRECTIONS. PT HAS BEEN MEDICATED WITH MORPPHINE, ATIVAN, AND FENTANYL NEEDED FOR ADJUNCT SEDATION. PRECEDEX HAS BEEN TITRATED FOR AGITATION FOR LONG THE HR WOULD ALLOW; MAINTAINED AT 0.3MCG/KG/HR MOST OF THE SHIFT. PIVOT 1.5 REMAINS AT 40MLS/HR WITH 250CC WATER FLUSHES Q4HRS. KRUEGER CATH REMAINS PATENT AND DRAINING TEA COLORED URINE TO GRAVITY. REPOSITIONED FOR COMFORT. NO FAMILY AT BEDSIDE.
--- NOTE | 2019-02-10 07:20 | NUR ---
Recieved report from Kiko MAR. Patient laying supine in bed with HOB at 30 degrees. He is wearing BIPAP 15/10 BU 12 FiO2 30% and sats 96%. He remains responsive to pain and no verbal communication and does no follow commands. He occassionally opens eyes and no tracking. He has Dobhoff infusing Pivot 1.5 at 40ml/hr and 250 free water flushes Q4, sodium still high. He has 20 ga IV LFA dressing intact and site WNL's and is infusing Precedex at 0.3 mcg/kg/hr. He also has 20 ga IV RFA flushed and SL'd. He has bilateral soft wist restraint that were released and circulation and skin checked and re-applied. He has 16 Fr. hess drainng to gravity cloudy tea colored urine. Dr Beltran is here now and increased Free water to 350ml Q4. Dr beltran stated to place Flomax on hold while Hess in place.
--- NOTE | 2019-02-10 10:00 | NUR ---
While giveng med Dobhoff tube stop working and pulled after talking to Dr. Rogers. It has been having problems since placed with med pass and replaced with NG tube. Bipap advanced to 100% FiO2 for sats low 80% and currently 90% with 18% leak. NG tube verified auscultation by Riri MAR. No other new orders from Dr Stafford.
--- NOTE | 2019-02-10 11:30 | NUR ---
ASSUMED CARE REPORT FROM PACO [facility] PT. CURRENTLY ON BIPAP. NOT FOLLOWING COMMANDS OR OPENING EYES AT THIS TIME. PT. MOVING BILAT UE HOWEVER NOT ANYTHING PURPOSEFUL. PT. DOES NOT WITHDRAW FROM PAIN AT THIS TIME. PT. APPEARS TO HAVE CHAPINCITO-BERGERON RESPIRATIONS. RT AT BEDSIDE REPORTS THIS IS A DIFFERENT PATTERN OF BREATHING SINCE THIS AM. CALL TO DR. VORA. PT. LS COARSE T/O. NEW NG TUBE PLACED BY PACO MAR THIS AM. TUBE FEEDING RESTARTED. PT. CONTINUES ON PRECEDEX GTT AT THIS TIME AT 0.7MCG/KG/HR. PT. CURRENTLY IN BILAT WRIST RESTRAINTS FOR SAFETY. CALL TO PT TO DISCUSS PLAN OF CARE, REQUESTED THAT SHE COME TO BEDSIDE.
--- NOTE | 2019-02-10 12:55 | NUR ---
DR. VORA CALLED TO UPDATE ON CONDITION ADDITIONAL LABS AND CHEST XRAY ORDERED. FAMILY REMAINS AT BEDSIDE.
--- NOTE | 2019-02-10 14:13 | NUR ---
POWERGLIDE PLACED TO RIGHT UPPER ARM, PT CONTINUES TO BE NONRESPONSIVE TO PAINFUL OR VERBAL STIMULI. IN TO TALK WITH FAMILY.
[2019-02-10 14:15] LABS: Troponin I 5.46 ng/mL (0.000-0.040)
--- NOTE | 2019-02-10 14:34 | NUR ---
EKG DONE AND SHOWED TO DR. VORA. NO FURTHER CHANGES AT THIS TIME.
--- NOTE | 2019-02-10 14:38 | NUR ---
PT. FAMILY AT BEDSIDE. DR. VORA AT BEDSIDE TALKING WITH DAUGHTER AND SON, PT JUST ADMITTED TO ER. DR. VORA MEETING WITH FAMILY; FAMILY DECISION TO MAKE PT COMFORT CARE AT THIS TIME.
--- NOTE | 2019-02-10 14:45 | NUR ---
Called to ICU as pt's family has made the decision to transition to comfort care. Family at bedside is son Ajith, brother and friends. They voice understanding of comfort care and have no questions at this time. Briefly reviewed comfort care and what that includes. Pt remains on the bipap at this time. Plan is to medicate for pain and anxiety and remove bipap mask for comfort. Family requested hardboard panel printer to visit. Father Alonso was called in. PC will remain available.
--- NOTE | 2019-02-10 15:31 | NUR ---
PT REMOVED FROM BIPAP MASK PER FAMILY REQUEST AND NG TUBE REMOVED WELL PT. RESTLESS IN BED, FLAILING ARMS, FFAMILY REQUESTING ADDITIONAL MEDICATION FOR COMFORT. [employer] WEB DEVELOPER ASSISTING WITH ORDERS.
--- NOTE | 2019-02-10 17:00 | NUR ---
PT HEART RATE SLOWED AND FAMILY REMAINED AT BEDSIDE TILL TOD OF 1657. THIS RN PRONOUNCED AFTER A FULL MIN OF AUSCULTATION AND ASYSTOLE NOTED ON MONITOR.
--- NOTE | 2019-02-10 17:23 | NUR ---
FAMILY TOOK ALL BELONGINGS FROM ROOM [facility] NOTIFIED
--- NOTE | 2019-02-10 18:27 | NUR ---
pt. taken via [facility]. sons contact number given to home rep.
== END 2019-02-10 18:25 ==
LOC: DELPENDDIS → ER 14:50 → PCU 16:37 → ICUW 16:37 → MEDS 16:37 → PCU 17:51 → MEDS 01-31 19:15 → PCU 02-01 08:50 → ENPENDDIS 02-01 10:00 → ICUW 02-08 08:35
PROVIDERS: Hospitalist; Internal Medicine; Internal Medicine Critical Care Medicine; Internal Medicine Interventional Cardiology; Pharmacist; Pharmacist Pharmacotherapy; ADMIT Internal Medicine
PROC: 4A023N7 Measurement of Cardiac Sampling and Pressure, Left Heart, Percutaneous Approach (ICD-10-PCS; principal; 2019-01-28)
PROC: B211YZZ Fluoroscopy of Multiple Coronary Arteries using Other Contrast (ICD-10-PCS; 2019-01-28)
DX: I21.A1 Myocardial infarction type 2 (principal); J18.9 Pneumonia, unspecified organism; A41.9 Sepsis, unspecified organism; N17.0 Acute kidney failure with tubular necrosis; G92 Toxic encephalopathy; N18.4 Chronic kidney disease, stage 4 (severe); E87.0 Hyperosmolality and hypernatremia; E78.5 Hyperlipidemia, unspecified; I12.9 Hypertensive chronic kidney disease with stage 1 through stage 4 chronic kidney disease, or unspecified chronic kidney disease; N18.2 Chronic kidney disease, stage 2 (mild); I25.10 Atherosclerotic heart disease of native coronary artery without angina pectoris; E66.9 Obesity, unspecified; D63.1 Anemia in chronic kidney disease; D69.6 Thrombocytopenia, unspecified; G47.33 Obstructive sleep apnea (adult) (pediatric); I71.4 Abdominal aortic aneurysm, without rupture; Z87.891 Personal history of nicotine dependence; Z79.4 Long term (current) use of insulin; Z95.5 Presence of coronary angioplasty implant and graft; Z79.82 Long term (current) use of aspirin; E87.6 Hypokalemia; E83.39 Other disorders of phosphorus metabolism; Z68.29 Body mass index [BMI] 29.0-29.9, adult; Z95.1 Presence of aortocoronary bypass graft; N14.1 Nephropathy induced by other drugs, medicaments and biological substances
CPT/HCPCS: 36415; 36600; 51701; 51702; 70450; 71045; 71046; 76700; 80048; 80053; 80069; 80202; 81001; 82330; 82550; 82607; 82728; 82746; 82784; 82803; 82947; 83010; 83540; 83550; 83615; 83735; 83880; 84100; 84145; 84165; 84300; 84484; 84550; 85025; 85027; 85610; 85730; 86038; 86334; 87040; 87086; 92526; 92610; 93005; 93010; 93306; 93455; 94640; 94660; 94667; 94762; 96374; 97110; 97116; 97161; 97530; 99152; 99153; 99285-25; C1751; C1760; C1769; J0360; J0881; J1644; J1650; J1815; J1940; J1956; J2060; J2250; J2270; J2405; J2543; J3010; J3370; J7030; J7040; J7042; J7050; J7060; J7070; J7120; Q0163; Q9967